=== PATIENT | female | born 1970 | race Caucasian/White ===

== ENCOUNTER → 2016-09-28 | Outpatient (CLI) | payer OTHER ==
--- NOTE | 2016-09-28 09:41 | NM ---
EXAMINATION TYPE: NM hepatobiliary w EF DATE OF EXAM: 09/28/2016 COMPARISON: NONE HISTORY: GERD TECHNIQUE: After the intravenous administration of 5.41 mCi Tc 99m Mebrofenin hepatobiliary scintigra phy is performed. Immediate images post injection. FINDINGS: There is satisfactory initial accumulation of tracer by the liver. The gallbladder is visualized wit hin 8 minutes. The small bowel activity is noted within 30 to minutes. At one hour 8 ounces of oral ensure plus is given to mimic CCK and gallbladder ejection fraction is calculated at 86 %, above nor mal. Therefore there is no scintigraphic evidence of cystic or common bile duct obstruction to sugge st acute cholecystitis or gallbladder dyskinesia. IMPRESSION: HYPOCONTRACTILITY OF THE GALLBLADDER.
== END | disposition home or self-care (01) ==
LOC: RADNMMAIN 07:01
PROVIDERS: ATTEND Surgery
DX: K82.8 Other specified diseases of gallbladder (principal)
CPT/HCPCS: 78226; A9537

== ENCOUNTER 2016-10-22 08:45 | Day surgery (SDC) | payer OTHER ==
[2016-10-19 14:27] VITALS: BMI 39.5
[~2016-10-22 08:45] MED LIST: DEXAMETHASONE SOD PHOSPHATE 10 MG/ML 1 ML VIAL IV ONE; HEPARIN SODIUM,PORCINE 5,000 UNIT/ML 1 ML VIAL SQ ONE; HYDROmorphone 1 MG/ML 1 ML SYRINGE IVP PRN; LACTATED RINGERS 1,000 ML IV SCH; MIDAZOLAM 2 MG/2 ML VIAL IV PRN; ONDANSETRON 4 MG/2 ML VIAL IVP ONE; SCOPOLAMINE 1.5MG/72HR PATCH TRANSDERM ONE; ceFAZolin 2 GM in SODIUM CHLORIDE 0.9% 100 ML IVPB ONE
[2016-10-22] MEDS ORDERED: LIDOCAINE 1% 20 ML VIAL (10MG/ML) FOR IV START INTRADERMA ONE (09:30)
--- NOTE | 2016-10-22 09:31 | P.GSHP ---
History of Present Illness H&P Date: 10/22/16 Chief Complaint: Right upper quadrant pain This is a 38-year-old female 6 with right upper quadrant pain. Her recent HIDA scan shows abnormal ejection fraction consistent with chronic cholecystitis. - Constitutional Constitutional: Reports as per HPI Past Medical History Past Medical History: Asthma, GERD/Reflux Additional Past Medical History / Comment(s): MIGRAINES, HERNIATED DISCS, DDD, BACK PAIN, HYPOGLYCEMIA-MONITORS CBG AND WATCHES DIET., FREQUENT DIARRHEA. History of Any Multi-Drug Resistant Organisms: None Reported Past Surgical History: Hysterectomy, Orthopedic Surgery Additional Past Surgical History / Comment(s): RIGHT HAND -PLATE AND SCREW, IRRITATING METAL REMOVED, EGD X2,LEFT KNEE-ARTHROSCOPIC, laporascopic Renetta procedure 10/14/2015 Past Anesthesia/Blood Transfusion Reactions: Motion Sickness, Postoperative Nausea & Vomiting (PONV) Past Psychological History: No Psychological Hx Reported Smoking Status: Former smoker Past Alcohol Use History: Rare Additional Past Alcohol Use History / Comment(s): STARTED SMOKING AT AGE 10, QUIT SMOKING IN 2005 SMOKED 1/2PPD Past Drug Use History: None Reported - Past Family History Mother Family Medical History: Cancer Additional Family Medical History / Comment(s): MOUTH AND THROAT CANCER Medications and Allergies Home Medications Medication Instructions Recorded Confirmed Type Acetaminophen-Codeine 300-30mg 1 tab PO Q4-6H PRN 10/19/16 10/22/16 History [Tylenol w/codeine #3] Ibuprofen [Motrin] 800 mg PO Q6HR PRN 10/19/16 10/22/16 History Ranitidine HCl [Zantac] 300 mg PO BID 10/19/16 10/22/16 History Sucralfate [Carafate] 1 gm PO QID PRN 10/19/16 10/22/16 History Xopenex Inhaler 45 Mcg 2 puff INHALATION QID PRN 10/19/16 10/22/16 History Allergies Allergy/AdvReac Type Severity Reaction Status Date / Time Penicillins Allergy Severe Rash/Hives Verified 10/22/16 09:25 venom-honey bee Allergy Severe Rash/Hives, Verified 10/22/16 09:25 [bee venom (honey bee)] SWELLING venom-wasp [wasp venom] Allergy Severe Rash/Hives, Verified 10/22/16 09:25 SWELLING perampanel [From Fycompa] Allergy DIZZINESS Verified 10/22/16 09:26 albuterol AdvReac Severe Rapid Verified 10/22/16 09:25 Heart Rate hydrocodone AdvReac Severe Vomiting Verified 10/22/16 09:25 Surgical - Exam - General well developed, no distress - Eyes PERRL - ENT normal pinna - Neck no masses - Respiratory normal expansion - Cardiovascular Rhythm: regular - Abdomen Abdomen: soft, non tender Assessment and Plan Plan: Right upper quadrant pain Chronic cholecystitis We will perform laparoscopic cholecystectomy
[2016-10-22 09:34] VITALS: TEMP 97.8
[2016-10-22 09:35] LABS: Glucose,Whole Blood 86 mg/dL (75-99)
[2016-10-22] MEDS ORDERED: KETOROLAC 30 MG/ML 1 ML VIAL ONE (10:59)
[2016-10-22] MEDS ORDERED: SUCCINYLCHOLINE CHLORIDE 100 MG/5 ML SYR IV ONE (10:59)
[2016-10-22] MEDS ORDERED: GLYCOPYRROLATE 0.2 MG/ML 2 ML VIAL ONE (10:59)
[2016-10-22] MEDS ORDERED: PROPOFOL 10 MG/ML 20 ML VIAL IV ONE (10:59)
[2016-10-22] MEDS ORDERED: NEOSTIGMINE 1 MG/ML 10 ML VIAL ONE (10:59)
[2016-10-22] MEDS ORDERED: ROCURONIUM BROMIDE 10 MG/ML 10 ML VIAL IV ONE (10:59)
[2016-10-22] MEDS ORDERED: fentaNYL (PF) 50 MCG/ML 2 ML AMP ONE (10:59)
[2016-10-22] MEDS ORDERED: LIDOCAINE 1% INJ 10MG/ML (20 ML MDV) ONE (10:59)
[2016-10-22] MEDS ORDERED: MIDAZOLAM 2 MG/2 ML VIAL ONE (10:59)
[2016-10-22] MEDS ORDERED: BUPIVACAIN-EPI 0.5%-1:200,000 30 ML VIAL SQ ONE (11:19)
--- NOTE | 2016-10-22 11:37 | P.OP ---
Date of Procedure: 10/22/16 Preoperative Diagnosis: Cholecystitis Postoperative Diagnosis: Cholecystitis Procedure(s) Performed: Laparoscopic cholecystectomy Implants: Anesthesia: NATTY Surgeon: Estrada Hunt Estimated Blood Loss (ml): 5 Pathology: other (All bladder) Condition: stable Disposition: PACU Indications for Procedure: Operative Findings: Description of Procedure: The patient was placed on the operating table. The patient received a general endotracheal tube anesthesia. The patients abdomen was prepped and draped in the usual sterile fashion. Through an infraumbilical stab incision, the fascia of the anterior abdominal wall was grasped with a pair of Kochers and then the Veress needle was placed in the peritoneal cavity. Position of the Veress needle was confirmed with positive drop test. The abdomen was then insufflated. After adequate insufflation, the 10 mm trocar was placed in the peritoneal cavity. Following this the laparoscope was placed in the peritoneal cavity. The patient was placed in the head-up, right side up position and then a 5 mm trocar was placed in the right lateral and right subcostal position under direct visualization. A 8 mm trocar was placed in the epigastric position. The gallbladder was grasped in the fundus and infundibulum. Traction on the gallbladder was placed in the lateral and the cephalad positions. The triangle of [place]ot was visualized.. The cystic duct was bluntly dissected until the union of the cystic duct and common bile duct was seen. The cystic duct was then divided and sealed with the Harmonic scissors. A PDS Endoloop was then placed throughout the cystic duct stump. The cystic artery divided and sealed with the Harmonic scissors. The gallbladder was then removed from the liver bed using Harmonic scissors. The gallbladder was then extracted through the epigastric port site. Operative field was checked for any bleeding spots and Harmonic scissors was used to coagulate the liver bed. The abdomen was irrigated. The trocars were removed. The skin was closed using interrupted 3-0 Vicryl suture. Dermabond dressing were applied. The patient tolerated the procedure well.
[2016-10-22] MEDS ORDERED: LACTATED RINGERS 1,000 ML IV ONE (11:38)
[2016-10-22 12:17] LABS: Glucose,Whole Blood 111 mg/dL (75-99)
[2016-10-22 13:43] VITALS: RESP 18
[2016-10-22 14:05] VITALS: BP 106/71; PULSE 49
[2016-10-22] MEDS ORDERED: Acetaminophen-Codeine 300-30mg TAB PO ONE ×2 (14:05→15:14)
== END 2016-10-22 15:44 | disposition home or self-care (01) ==
LOC: OR 08:45
PROVIDERS: ATTEND Surgery
DX: K81.1 Chronic cholecystitis (principal); J45.909 Unspecified asthma, uncomplicated; E16.2 Hypoglycemia, unspecified; Z87.891 Personal history of nicotine dependence; Z79.899 Other long term (current) drug therapy; Z88.5 Allergy status to narcotic agent; Z88.0 Allergy status to penicillin; Z88.8 Allergy status to other drugs, medicaments and biological substances; Z91.030 Bee allergy status; Z91.038 Other insect allergy status
CPT/HCPCS: 88304; 47562; J2250; J1644; J1100; J2710; J0690; J2405; J2001; J3010; J1885; J1170; J0330; J2704

== ENCOUNTER → 2017-06-09 | Outpatient (CLI) | payer OTHER ==
--- NOTE | 2017-06-09 12:18 | FL ---
ESOPHOGRAM. HISTORY: s/p Renetta fundoplication 2 years ago, cholecystectomy 1 year ago. c/o pain, burning at surg daron site, reflux. COMPARISON: 10/15/2015 1.0 min fluoro, 1 oz EZ Paque. 11 images submitted. Esophagram was performed per the air contrast technique. The patient swallowed thin liquid barium wi thout difficulty or delay. Esophageal peristalsis and motility appear to be within normal limits. There is no evidence for filling defect, mass or diverticulum. There is a small recurrent hiatal hernia identified. IMPRESSION: 1. Small recurrent hiatal hernia in a patient who is status post Fredrick fundoplication 10/15/2015.
== END | disposition home or self-care (01) ==
LOC: RADFLWHC 09:33
PROVIDERS: ATTEND Surgery
DX: K44.9 Diaphragmatic hernia without obstruction or gangrene (principal); K21.9 Gastro-esophageal reflux disease without esophagitis; Z98.890 Other specified postprocedural states
CPT/HCPCS: 74220

== ENCOUNTER 2017-06-24 08:10 | Day surgery (SDC) | payer OTHER ==
[2017-06-22 14:54] VITALS: BMI 38.9
[~2017-06-24 08:10] MED LIST changes: -DEXAMETHASONE SOD PHOSPHATE 10 MG/ML 1 ML VIAL IV ONE; -HEPARIN SODIUM,PORCINE 5,000 UNIT/ML 1 ML VIAL SQ ONE; -HYDROmorphone 1 MG/ML 1 ML SYRINGE IVP PRN; +LIDOCAINE 1% 20 ML VIAL (10MG/ML) FOR IV START INTRADERMA PRN; -MIDAZOLAM 2 MG/2 ML VIAL IV PRN; -ONDANSETRON 4 MG/2 ML VIAL IVP ONE; -SCOPOLAMINE 1.5MG/72HR PATCH TRANSDERM ONE; -ceFAZolin 2 GM in SODIUM CHLORIDE 0.9% 100 ML IVPB ONE
[2017-06-24 09:05] VITALS: RESP 16; TEMP 98.1
[2017-06-24] MEDS ORDERED: PROPOFOL 10 MG/ML 20 ML VIAL IV ONE (09:15)
[2017-06-24] MEDS ORDERED: GLYCOPYRROLATE 0.2 MG/ML 2 ML VIAL ONE (09:15)
[2017-06-24] MEDS ORDERED: LIDOCAINE 1% INJ 10MG/ML (20 ML MDV) ONE (09:15)
[2017-06-24 09:18] LABS: Glucose,Whole Blood 84 mg/dL (75-99)
--- NOTE | 2017-06-24 09:20 | P.GSHP ---
History of Present Illness H&P Date: 06/24/17 Chief Complaint: GERD, dysphagia This is a 47-year-old female referred from Dr. Fournier. Patient has complaints of GERD and intermittent dysphagia. She underwent previous hiatal hernia repair approximately 2 years ago. Her recent esophagram shows evidence of a small recurrent hiatal hernia. She presents today for EGD. Past Medical History Past Medical History: Asthma, GERD/Reflux, Hyperlipidemia Additional Past Medical History / Comment(s): MIGRAINES, HERNIATED DISCS, BACK PAIN, FREQUENT DIARRHEA. History of Any Multi-Drug Resistant Organisms: None Reported Past Surgical History: Cholecystectomy, Hysterectomy, Orthopedic Surgery Additional Past Surgical History / Comment(s): ,RIGHT HAND -PLATE AND SCREW, IRRITATING METAL REMOVED, EGD X2,LEFT KNEE-ARTHROSCOPIC, laporascopic Renetta procedure Past Anesthesia/Blood Transfusion Reactions: Motion Sickness, Postoperative Nausea & Vomiting (PONV) Smoking Status: Former smoker - Past Family History Mother Family Medical History: Cancer Additional Family Medical History / Comment(s): MOUTH AND THROAT CANCER Medications and Allergies Home Medications Medication Instructions Recorded Confirmed Type Ibuprofen [Motrin] 800 mg PO Q6HR PRN 10/19/16 06/24/17 History Ranitidine HCl [Zantac] 300 mg PO BID 10/19/16 06/24/17 History Sucralfate [Carafate] 1 gm PO QID PRN 10/19/16 06/24/17 History Xopenex Inhaler 45 Mcg 2 puff INHALATION QID PRN 10/19/16 06/24/17 History Acetaminophen-Codeine 300-30mg 1 - 2 tab PO Q6H PRN 06/22/17 06/24/17 History [Tylenol #3] Allergies Allergy/AdvReac Type Severity Reaction Status Date / Time Penicillins Allergy Severe Rash/Hives Verified 06/22/17 14:25 venom-honey bee Allergy Severe Rash/Hives, Verified 06/22/17 14:25 [bee venom (honey bee)] SWELLING venom-wasp [wasp venom] Allergy Severe Rash/Hives, Verified 06/22/17 14:25 SWELLING gabapentin [From Neurontin] Allergy UNSTEADY Verified 06/22/17 15:04 GAIT,DIZZY perampanel [From Fycompa] Allergy DIZZINESS Verified 06/22/17 14:25 albuterol AdvReac Severe Rapid Verified 06/22/17 14:25 Heart Rate hydrocodone AdvReac Severe Vomiting Verified 06/22/17 14:25 Surgical - Exam Vital Signs Temp Pulse Resp BP Pulse Ox 98.1 F 73 16 128/86 96 06/24/17 09:02 06/24/17 09:02 06/24/17 09:02 06/24/17 09:02 06/24/17 09:02 - General well developed, no distress - Eyes PERRL - ENT normal pinna - Neck no masses - Respiratory normal expansion - Cardiovascular Rhythm: regular - Abdomen Abdomen: soft, non tender Assessment and Plan Assessment: GERD, dysphagia Recurrent hiatal hernia We'll perform EGD.
--- NOTE | 2017-06-24 09:26 | P.OP ---
Date of Procedure: 06/24/17 Preoperative Diagnosis: GERD Dysphagia Postoperative Diagnosis: Recurrent hiatal hernia Esophagitis with ulceration Procedure(s) Performed: EGD Anesthesia: MAC Surgeon: Estrada Hunt Pathology: other (Esophagus) Condition: stable Disposition: PACU Description of Procedure: The patient's placed on the endoscopy table in the lateral position. She received IV sedation. The gastroscope placed oropharynx and passed in the esophagus and stomach. Scope was then placed through the pylorus. The first and second portion of the duodenum appeared normal. Scope was then brought back the antrum this appeared normal. The scope was then retroflexed and the patient is found have a hiatal hernia. The gastric fundal plication appeared to be displaced onto the stomach. The GE junction was at 38 cm. The distal esophagus appeared inflamed. This area is biopsied. The proximal esophagus. Normal. Scope was withdrawn for patient.
[2017-06-24 09:56] VITALS: BP 138/84; PULSE 73
== END 2017-06-24 10:09 | disposition home or self-care (01) ==
LOC: ORWHC2ENDO 08:10
PROVIDERS: ATTEND Surgery
DX: K21.0 Gastro-esophageal reflux disease with esophagitis (principal); B37.81 Candidal esophagitis; K22.10 Ulcer of esophagus without bleeding; K44.9 Diaphragmatic hernia without obstruction or gangrene; J45.909 Unspecified asthma, uncomplicated; E78.5 Hyperlipidemia, unspecified; G43.909 Migraine, unspecified, not intractable, without status migrainosus; Z79.899 Other long term (current) drug therapy; Z87.891 Personal history of nicotine dependence; Z88.0 Allergy status to penicillin; Z88.8 Allergy status to other drugs, medicaments and biological substances; Z91.030 Bee allergy status; Z91.038 Other insect allergy status
CPT/HCPCS: 43239; J2001; J2704; 88305; 88312

== ENCOUNTER 2017-07-22 06:21 | Inpatient (IN) | payer OTHER ==
[2017-07-13 14:17] VITALS: BMI 39.8
[~2017-07-22 06:21] MED LIST changes: +DEXAMETHASONE SOD PHOSPHATE 10 MG/ML 1 ML VIAL IV ONE; +HEPARIN SODIUM,PORCINE 5,000 UNIT/ML 1 ML VIAL SQ ONE; -LACTATED RINGERS 1,000 ML IV SCH; -LIDOCAINE 1% 20 ML VIAL (10MG/ML) FOR IV START INTRADERMA PRN; +MIDAZOLAM 2 MG/2 ML VIAL IV PRN; +ONDANSETRON 4 MG/2 ML VIAL IVP ONE; +SCOPOLAMINE 1.5MG/72HR PATCH TRANSDERM ONE; +ceFAZolin 2 GM in SODIUM CHLORIDE 0.9% 100 ML IVPB ONE; +ceFAZolin IN SWFI 2 GM/20 ML SYRINGE IVP ONE; +fentaNYL (PF) 50 MCG/ML 2 ML AMP IV PRN
[2017-07-22] MEDS ORDERED: LIDOCAINE 1% 20 ML VIAL (10MG/ML) FOR IV START INTRADERMA ONE (07:00)
[2017-07-22 07:09] LABS: Glucose,Whole Blood 87 mg/dL (75-99)
[2017-07-22] MEDS: LACTATED RINGERS 1,000 ML IV SCH (07:17)
[2017-07-22] MEDS ORDERED: BUPIVACAINE (PF) 0.25% 30 ML VIAL SQ ONE ×2 (07:24→09:28)
[2017-07-22] MEDS ORDERED: CLINDAMYCIN 600 MG in DEXTROSE 5% IN WATER 50 ML IVPB STA ×2 (07:39)
--- NOTE | 2017-07-22 07:44 | P.GSHP ---
History of Present Illness H&P Date: 07/22/17 Chief Complaint: GERD, dysphagia This a 47-year-old female who presents today for laparoscopic repair of recurrent hiatal hernia. Patient is developed a recurrent hiatal hernia. She' s been symptomatic with GERD and dysphagia.The patient has had long-standing problems with reflux esophagitis. The patient underwent recent EGD is found have evidence of esophagitis. Patient has been well informed on the procedure of laparoscopic hiatal hernia repair. The patient is aware the risk of the conversion to the open procedure, risk of injury to the stomach, liver and spleen. The patient is also a risk of recurrent GERD and dysphagia symptoms. The patient understands there is a postoperative diet of full liquids for 2 weeks after surgery. Past Medical History Past Medical History: Asthma, GERD/Reflux, Hyperlipidemia Additional Past Medical History / Comment(s): HYPOGLYCEMIA. MIGRAINES, HERNIATED DISCS, BACK PAIN, FREQUENT DIARRHEA. History of Any Multi-Drug Resistant Organisms: None Reported Past Surgical History: Cholecystectomy, Hysterectomy, Orthopedic Surgery Additional Past Surgical History / Comment(s): ,RIGHT HAND -PLATE AND SCREW, IRRITATING METAL REMOVED, EGD X2,LEFT KNEE-ARTHROSCOPIC, laparoscopic Renetta procedure , EGD Past Anesthesia/Blood Transfusion Reactions: Motion Sickness, Postoperative Nausea & Vomiting (PONV) Past Psychological History: No Psychological Hx Reported Smoking Status: Former smoker Past Alcohol Use History: Rare Additional Past Alcohol Use History / Comment(s): STARTED SMOKING AT AGE 10, QUIT SMOKING IN 2005 SMOKED 1/2PPD Past Drug Use History: None Reported - Past Family History Mother Family Medical History: Cancer Additional Family Medical History / Comment(s): MOUTH AND THROAT CANCER Medications and Allergies Home Medications Medication Instructions Recorded Confirmed Type Ibuprofen [Motrin] 800 mg PO Q6HR PRN 10/19/16 07/13/17 History Ranitidine HCl [Zantac] 300 mg PO BID 10/19/16 07/13/17 History Sucralfate [Carafate] 1 gm PO QID PRN 10/19/16 07/13/17 History Xopenex Inhaler 45 Mcg 2 puff INHALATION QID PRN 10/19/16 07/13/17 History Acetaminophen-Codeine 300-30mg 1 - 2 tab PO Q6H PRN 06/22/17 07/13/17 History [Tylenol #3] Omeprazole 20 mg PO DAILY 07/13/17 07/13/17 History Allergies Allergy/AdvReac Type Severity Reaction Status Date / Time Penicillins Allergy Severe Rash/Hives Verified 07/13/17 14:11 venom-honey bee Allergy Severe Rash/Hives, Verified 07/13/17 14:11 [bee venom (honey bee)] SWELLING venom-wasp [wasp venom] Allergy Severe Rash/Hives, Verified 07/13/17 14:11 SWELLING gabapentin [From Neurontin] Allergy UNSTEADY Verified 07/13/17 14:11 GAIT,DIZZY perampanel [From Fycompa] Allergy DIZZINESS Verified 07/13/17 14:11 albuterol AdvReac Severe Rapid Verified 07/13/17 14:11 Heart Rate hydrocodone AdvReac Severe Vomiting Verified 07/13/17 14:11 Surgical - Exam Vital Signs Temp Pulse Resp BP Pulse Ox 97.9 F 63 18 107/69 97 07/22/17 07:13 07/22/17 07:13 07/22/17 07:13 07/22/17 07:13 07/22/17 07:13 - General well developed, no distress - Eyes PERRL - Neck no masses - Respiratory normal expansion - Cardiovascular Rhythm: regular - Abdomen Abdomen: soft, non tender Assessment and Plan Assessment: Recurrent hiatal hernia. We'll perform laparoscopic repair.
[2017-07-22] MEDS ORDERED: MIDAZOLAM 2 MG/2 ML VIAL ONE (07:49)
[2017-07-22] MEDS ORDERED: fentaNYL (PF) 50 MCG/ML 2 ML AMP ONE (07:49)
[2017-07-22] MEDS ORDERED: PROPOFOL 10 MG/ML 20 ML VIAL IV ONE (07:49)
[2017-07-22] MEDS ORDERED: LIDOCAINE 1% INJ 10MG/ML (20 ML MDV) ONE (07:49)
[2017-07-22] MEDS ORDERED: KETOROLAC 30 MG/ML 1 ML VIAL ONE (07:49)
[2017-07-22] MEDS ORDERED: NEOSTIGMINE 1 MG/ML 10 ML VIAL ONE (07:49)
[2017-07-22] MEDS ORDERED: GLYCOPYRROLATE 0.2 MG/ML 2 ML VIAL ONE (07:49)
[2017-07-22] MEDS ORDERED: ROCURONIUM BROMIDE 10 MG/ML 10 ML VIAL IV ONE (07:49)
[2017-07-22] MEDS ORDERED: SUCCINYLCHOLINE CHLORIDE 100 MG/5 ML SYR IV ONE (07:49)
[2017-07-22] MEDS ORDERED: METHYLENE BLUE 10 MG/ML (10 ML VIAL) MISCELLANE ONE (09:22)
--- NOTE | 2017-07-22 09:39 | P.OP ---
Date of Procedure: 07/22/17 Preoperative Diagnosis: GERD Recurrent hiatal hernia Postoperative Diagnosis: GERD Recurrent hiatal hernia Procedure(s) Performed: Laparoscopic repair of hiatal hernia with mesh, 180 fundal plication Anesthesia: NATTY Surgeon: Estrada Hunt Estimated Blood Loss (ml): 5 Pathology: none sent Condition: stable Disposition: PACU Description of Procedure: The patient was placed on the operating table in the supine position. She received general anesthesia. She was then placed in dorsal lithotomy position. Her abdomen was prepped and draped in the usual sterile fashion. The skin incision sites were anesthetized with 1% local Xylocaine. The skin was incised in the left periumbilical area with an 11 scalpel. Using a 5 mm blade was trocar under direct visitation the peritoneal cavity was entered. And then insufflated. After adequate insufflation the laparoscope was placed back into the peritoneal cavity. Next a 5 mm trocar was placed in the right epigastric and then the right lateral position. Another 5 mm trochars placed in the left lateral position. Another 5 mm trocar placed in the left epigastric position. And the original left periumbilical trocar was exchanged for a 10 mm trocar. The left lateral lobe liver was retracted. The patient had a recurrent hiatal hernia. Using the Harmonic scissors the crural defect was dissected in the Harmonic scissors were used to dissect the hiatal hernia sac. The fundus of the stomach was completely mobilized by using the Harmonic scissors to divide short gastric vessels. The stomach was reduced into the peritoneal cavity. The crura was dissected with the Harmonic scissors. And then the crural repair was performed using 2-0 Ethibond suture. The [place] bio A mesh was then placed over top of the repair and secured with 2-0 Ethibond suture. Next a 58-[place] bougie dilator was placed the patient's oral pharynx and into the esophagus into the stomach by the ENGINE LATHE SET UP OPERATOR. The fundoplication was then performed using 2-0 Ethibond suture. A 180 fundoplication was performed. At this point the dilator was withdrawn. The stomach and esophagus were inspected there is known to any injury to the stomach or esophagus. The abdomen was irrigated there is no bleeding seen. The trochars are withdrawn. Skin was closed interrupted 3-0 Monocryl suture. Dermabond was applied. Patient tolerated procedure well and was sent to recovery in stable condition.
[2017-07-22 09:52] VITALS: RESP 16
[2017-07-22] MEDS ORDERED: LACTATED RINGERS 1,000 ML IV ONE (09:58)
[2017-07-22] MEDS ORDERED: ONDANSETRON 4 MG/2 ML VIAL IVP ONE (11:10)
[2017-07-22] MEDS: D5-0.45% NACL WITH KCL 20MEQ/L 1,000 ML IV SCH ×2 (12:15→19:54)
[2017-07-22] MEDS ORDERED: ONDANSETRON 4 MG/2 ML VIAL IVP PRN (12:39)
[2017-07-22] MEDS: PANTOPRAZOLE 40 MG/10 ML VIAL IVP SCH ×2 (13:13→19:54)
--- NOTE | 2017-07-22 14:13 | FL ---
EXAMINATION TYPE: FL esophagus cervic/pharynx DATE OF EXAM: 07/22/2017 LIMITED UGI-ESOPHAGRAM: CLINICAL HISTORY: History of recurrent hiatal hernia per patient status post Fredrick fundoplication s urgery earlier today TECHNIQUE: Limited esophagram is performed utilizing 25 oz of Omnipaque 350. A total of 2 minutes 41 seconds of fluoroscopic time was utilized during procedure. 32 images are saved to PACS. Comparison: Barium swallow study June 09, 2017. FINDINGS: The patient swallowed contrast without difficulty or delay. Esophageal peristalsis and mo tility are within normal limits. There is an initial delayed flow of contrast along the diaphragmatic hiatus into the stomach, there is no evidence of contrast extravasation to suggest leak. Patient is nauseous before and during procedure without increased nausea. No persistent hiatal hernia is seen ju st above diaphragmatic hiatus. After drinking water there is improved flow of contrast through hiatus into stomach. Cholecystectomy clips are noted. IMPRESSION: No evidence of leak or significant obstruction status post reoperation on recurrent hiata l hernia causing repeat Fredrick fundoplication surgery earlier today.
[2017-07-22] MEDS: MORPHINE SULFATE/PF 10MG/10ML VL IVP PRN ×2 (16:59→22:11)
[2017-07-22] MEDS ORDERED: NON-FORMULARY DRUG (Levalbuterol Tartrate [Xopenex Hfa Inhaler] 2 PUFF) INHALATION PRN (18:59)
--- NOTE | 2017-07-22 20:40 | CONS ---
CONSULTATION REASON FOR CONSULTATION: Advice regarding asthma and multiple medical issues requested by Dr. Hunt. HISTORY OF PRESENT ILLNESS: This 47-year-old woman with past medical history of asthma, GERD, hyperlipidemia , cholecystectomy being followed by Dr. Barnes in the outpatient setting underwent laparoscopic repair of the hiatal hernia with mesh with fundoplication by Dr. Hunt. The patient is being closely monitored. There is no history of any chest pain, no palpitations, no headache, loss of conscious or seizures at this time. PAST MEDICAL HISTORY: History of asthma, GERD, hyperlipidemia, hypertension, migraines, cholecystectomy. MEDICATIONS: Prior to admission include: 1. Carafate 1 g p.o. q.i.d. p.r.n. 2. Zantac 300 mg p.o. b.i.d. 3. Omeprazole 20 mg p.o. daily. 4. Motrin 800 mg q.6h p.r.n. 5. Tylenol #3 one tablets q.6h p.r.n. 6. Xopenex HFA 2 puffs q.i.d. p.r.n. 7. [place] 7.5 q.4h. 8. Colace 100 mg p.o. b.i.d. ALLERGIES: PENICILLIN, HONEY BEE, WASP, NEURONTIN, ALBUTEROL, HYDROCODONE. FAMILY HISTORY: History of mouth and throat cancer. SOCIAL HISTORY: Previous history of smoking. Occasional alcohol intake. REVIEW OF SYSTEMS: ENT: No diminished vision. No diminished hearing. CARDIOVASCULAR: No angina or palpitations. Respiratory: No cough or hemoptysis. GI as mentioned earlier. no dysuria. Nervous system: No numbness, weakness. Allergy/Immunology: No asthma or hayfever. Musculoskeletal as mentioned earlier. HEMATOLOGY/ONCOLOGY: No history of anemia. Endocrine: No history of diabetes or hypothyroidism. CONSTITUTIONAL: As mentioned earlier. Dermatology: Negative. Rheumatology: Negative. Psychiatric: As mentioned earlier. PHYSICAL EXAMINATION: Patient is alert, oriented times three. Pulse 70, blood pressure 126/70, respiration 16, temperature 97.4, pulse ox 94% on room air. HEENT: Conjunctivae normal. Oral mucosa moist. Neck is no jugular venous distention. No carotid bruit. No lymph node enlargement. Cardiovascular: S1, S2 muffled. No S3, no S4. Respiratory: Breath sounds diminished in the bases. No rhonchi. No crackles. ABDOMEN: Soft. Status post surgery. Bowel sounds present. Legs: No edema and no swelling. NERVOUS SYSTEM: Higher functions as mentioned earlier. Moves all four limbs. No focal deficits. Lymphatics: No lymph nodes palpable in the neck, axillae or groin. SKIN: No ulcer, rashes or bleeding. LAB STUDIES: Glucose 87. Other labs: Hematology recent done, CBC within normal limits. ASSESSMENT: 1. Status post laparoscopic hiatal hernia, repair of hiatal hernia as well as fundoplication for gastroesophageal reflux disease. 2. Asthma. 3. Hyperlipidemia. 4. History of hypoglycemia. 5. History of migraines. 6. History of degenerative joint disease. 7. History of cholecystectomy. 8. Remote history of nicotine dependence. RECOMMENDATIONS AND DISCUSSION: This 47-year-old woman who presented after surgery had multiple medical issues. I would recommend to resume the home medication. The patient is on DVT prophylaxis. Incentive spirometry. Proton pump inhibitors. We will follow the patient closely with you. Xopenex HFA inhaler may be used initially. Thank you for letting us participate in the care of this patient. MMODL / IJN: [id number] / MTDPatricia
[2017-07-22 21:21] VITALS: PULSE 61
[2017-07-23] MEDS: LACTATED RINGERS 1,000 ML IV SCH (03:12)
[2017-07-23] MEDS: D5-0.45% NACL WITH KCL 20MEQ/L 1,000 ML IV SCH (05:08)
[2017-07-23] MEDS: MORPHINE SULFATE/PF 10MG/10ML VL IVP PRN ×2 (05:09→09:26)
[2017-07-23 07:15] LABS: Basophils % (A) 0 %; Eosinophils % (A) 0 %; HCT 37.3 % (34.0-46.0); HGB 11.9 gm/dL (11.4-16.0); Lymphocytes # (A) 1.9 k/uL (1.0-4.8); Lymphocytes % (A) 26 %; MCHC 31.9 g/dL (31.0-37.0); MCV 84.5 fL (80.0-100.0); Mean Platelet Volume 7.1; Monocytes # (A) 0.4 k/uL (0-1.0); Monocytes % (A) 5 %; Neutrophils % (A) 68 %; Platelet Count 217 k/uL (150-450); RBC 4.41 m/uL (3.80-5.40); RDW 14.4 % (11.5-15.5); WBC 7.4 k/uL (3.8-10.6)
[2017-07-23 07:25] VITALS: BP 92/63; TEMP 98.6
[2017-07-23 07:28] LABS: Albumin 3.2 g/dL (3.5-5.0); Calcium 8.7 mg/dL (8.4-10.2); Potassium 4.4 mmol/L (3.5-5.1); Total Bilirubin 0.4 mg/dL (0.2-1.3); Total Protein 5.6 g/dL (6.3-8.2)
[2017-07-23] MEDS: PANTOPRAZOLE 40 MG/10 ML VIAL IVP SCH (08:24)
[2017-07-23] MEDS ORDERED: ENOXAPARIN 40 MG/0.4 ML SYRINGE SQ SCH (09:00)
[2017-07-23] MEDS ORDERED: HYDROcodone/APAP 7.5-325MG 1 EACH TAB PO ONE (14:02)
--- NOTE | 2017-07-23 14:12 | P.PN ---
Progress Note - Text Progress Note Date: 07/23/17 Patient seen and evaluated. Discharge instructions reviewed. May be discharged home. Patient prefers tylenol and ibuprofen.
[2017-07-23] MEDS ORDERED: ACETAMINOPHEN TAB 500 MG TAB PO STA (14:16)
--- NOTE | 2017-07-23 14:23 | PN ---
PROGRESS NOTE DATE OF SERVICE: 07/23/2017 INTERVAL HISTORY: This 47-year-old woman was admitted laparoscopic hiatal hernia repair, is improving significantly. No chest pain. No palpitations. No fever. No cough. EXAM: Alert and oriented times three. Pulse 61, blood pressure 92/63, respiration 16, temperature 98.2, pulse ox 98% on room air. HEENT: Conjunctivae normal. NECK: No jugular venous distention. Cardiovascular: S1, S2 muffled. Respiration: Breath sounds diminished in the bases. No rhonchi. No crackles. Abdomen is soft. Status post surgery. Legs are no edema. No swelling. Central nervous system: No focal deficits. LABORATORY DATA: CBC and CMP noted. ASSESSMENT: 1. Status post laparoscopic hiatal hernia repair as well as fundoplication for gastroesophageal reflux disease. 2. Asthma. 3. Hyperlipidemia. 4. History of hypoglycemia. 5. History of migraine. 6. History of degenerative joint disease. 7. History of cholecystectomy. 8. Remote history of nicotine dependence. RECOMMENDATIONS AND DISCUSSION: Recommend to continue current medications, management and symptomatic treatment. Recommend to resume the home medications including bronchodilators and incentive spirometry. Closely follow with primary physician. The rest of the recommendations will be per surgery. Further recommendations to follow. MMODL / IJN: [id number] /
--- NOTE | 2017-07-23 19:00 | P.DS ---
Providers Date of admission: 07/22/17 06:21 Expected date of discharge: 07/23/17 Attending physician: Estrada Hunt Consults: 07/22/17 09:34 Consult Physician Routine Consulting Provider: Harriet Porter Consult Reason/Comments: Medical management Do you want consulting provider notified?: Yes Primary care physician: Flavia Barnes - Discharge Diagnosis(es) (1) Hiatal hernia Status: Acute Hospital Course: The patient is a 47-year-old female admitted with hiatal hernia. She underwent hiatal hernia repair by Dr. Hunt. No reports of nausea or vomiting. At discharge, she was tolerating diet. Pertinent Studies: Esophagram negative for leak. Procedures: Laparoscopic hiatal hernia repair Patient Condition at Discharge: Stable Plan - Discharge Summary Discharge Rx Participant: Yes New Discharge Prescriptions: New Docusate [Colace] 100 mg PO BID #20 capsule HYDROcodone/APAP 7.5-325MG [[place] 7.5] 1 each PO Q4H PRN #30 tab PRN Reason: Pain No Action Sucralfate [Carafate] 1 gm PO QID PRN PRN Reason: Heartburn Ranitidine HCl [Zantac] 300 mg PO BID Ibuprofen [Motrin] 800 mg PO Q6HR PRN PRN Reason: Pain Acetaminophen-Codeine 300-30mg [Tylenol #3] 1 - 2 tab PO Q6H PRN PRN Reason: Pain Omeprazole 20 mg PO DAILY Levalbuterol Tartrate [Xopenex Hfa Inhaler] 2 puff INHALATION RT-QID PRN PRN Reason: Shortness Of Breath Discharge Medication List Ibuprofen [Motrin] 800 mg PO Q6HR PRN 10/19/16 [History] Ranitidine HCl [Zantac] 300 mg PO BID 10/19/16 [History] Sucralfate [Carafate] 1 gm PO QID PRN 10/19/16 [History] Acetaminophen-Codeine 300-30mg [Tylenol #3] 1 - 2 tab PO Q6H PRN 06/22/17 [ History] Omeprazole 20 mg PO DAILY 07/13/17 [History] Docusate [Colace] 100 mg PO BID #20 capsule 07/22/17 [Rx] HYDROcodone/APAP 7.5-325MG [[place] 7.5] 1 each PO Q4H PRN #30 tab 07/22/17 [Rx] Levalbuterol Tartrate [Xopenex Hfa Inhaler] 2 puff INHALATION RT-QID PRN [History] Follow up Appointment(s)/Referral(s): Estrada Hunt MD [STAFF PHYSICIAN] - 08/04/17 2:10 pm Patient Instructions/Handouts: *Surgery [facility] - (Anesthesia) Discharge Instructions Outpatient Surgery, Hiatal Hernia (DC) Activity/Diet/Wound Care/Special Instructions: May shower. Do not scrub incision. No heavy lifting, pushing, or pulling greater than 5-10 pounds. Monitor for signs of infection such as redness, swelling, fever, and drainage. Discharge Disposition: HOME SELF-CARE
== END 2017-07-23 14:50 | disposition home or self-care (01) | DRG 328 ==
LOC: 2ORMAIN 06:21 → 3SUR 11:27
PROVIDERS: ADMIT Surgery; ATTEND Surgery
PROC: 0BUT4JZ Supplement Diaphragm with Synthetic Substitute, Percutaneous Endoscopic Approach (ICD-10-PCS; 2017-07-22)
PROC: 0DV44ZZ Restriction of Esophagogastric Junction, Percutaneous Endoscopic Approach (ICD-10-PCS; principal; 2017-07-22 08:00)
DX: K44.9 Diaphragmatic hernia without obstruction or gangrene (principal); R13.10 Dysphagia, unspecified; K21.0 Gastro-esophageal reflux disease with esophagitis; E78.5 Hyperlipidemia, unspecified; J45.909 Unspecified asthma, uncomplicated; I10 Essential (primary) hypertension; M19.91 Primary osteoarthritis, unspecified site; M54.9 Dorsalgia, unspecified; R19.7 Diarrhea, unspecified; G43.909 Migraine, unspecified, not intractable, without status migrainosus; Z87.891 Personal history of nicotine dependence; Z79.899 Other long term (current) drug therapy; Z90.49 Acquired absence of other specified parts of digestive tract; Z90.710 Acquired absence of both cervix and uterus; Z88.5 Allergy status to narcotic agent; Z88.0 Allergy status to penicillin; Z88.8 Allergy status to other drugs, medicaments and biological substances; Z91.030 Bee allergy status; Z80.0 Family history of malignant neoplasm of digestive organs
CPT/HCPCS: 74210; 80053; 85025

== ENCOUNTER → 2018-03-15 | Outpatient (CLI) | payer OTHER ==
--- NOTE | 2018-03-15 15:03 | FL ---
EXAMINATION: Single contrast Cervical and Thoracic Esophagram DATE OF EXAM: 03/15/2018 CLINICAL INDICATION: 48 year-old female with reflux, heartburn, and pain. Patient with Renetta fundopl ication 3 years ago and revision surgery in June 2017. COMPARISON: 07/22/2017 Total Fluoroscopy Time: 2.01 minutes. Total images: 17. FINDINGS: The patient said that she cannot tolerate sodas. Therefore, only thin barium was utilized. Even utili zing thin barium, the patient was only outflow able to tolerate 1 ounce. This creates very limited as sessment. Overall normal course and caliber of the thoracic esophagus. No obvious recurrent hiatal he rnia seen. Most of the contrast passes into the stomach. Approximately half to a quarter remains in t he lower esophagus and there are tertiary peristaltic waves resulting in to-and-fro flow of contrast within the lower esophagus. IMPRESSION: Even utilizing thin barium, the patient could only tolerate 1 ounce of oral contrast. This secondaril y limits the assessment. No convincing findings of recurrent hiatal hernia. However, some of the cont rast remains in the lower esophagus and there are ensuing tertiary peristaltic waves resulting in tammy ts of intraesophageal reflux. Narrowing/stenosis at the GE junction is difficult to exclude. Again, t he minimal amount of ingested contrast limits the evaluation.
== END ==
LOC: RADFLWHC 08:46
PROVIDERS: ATTEND Surgery
DX: K21.9 Gastro-esophageal reflux disease without esophagitis (principal)
CPT/HCPCS: 74220

== ENCOUNTER 2018-03-27 07:43 | Day surgery (SDC) | payer OTHER ==
[2018-03-23 14:43] VITALS: BMI 41.3
[~2018-03-27 07:43] MED LIST changes: -DEXAMETHASONE SOD PHOSPHATE 10 MG/ML 1 ML VIAL IV ONE; -HEPARIN SODIUM,PORCINE 5,000 UNIT/ML 1 ML VIAL SQ ONE; +LACTATED RINGERS 1,000 ML IV SCH; +LIDOCAINE 1% 20 ML VIAL (10MG/ML) FOR IV START INTRADERMA PRN; -MIDAZOLAM 2 MG/2 ML VIAL IV PRN; -ONDANSETRON 4 MG/2 ML VIAL IVP ONE; -SCOPOLAMINE 1.5MG/72HR PATCH TRANSDERM ONE; -ceFAZolin 2 GM in SODIUM CHLORIDE 0.9% 100 ML IVPB ONE; -ceFAZolin IN SWFI 2 GM/20 ML SYRINGE IVP ONE; -fentaNYL (PF) 50 MCG/ML 2 ML AMP IV PRN
[2018-03-27 08:18] VITALS: TEMP 98.3
[2018-03-27] MEDS ORDERED: LIDOCAINE 1% 20 ML VIAL (10MG/ML) FOR IV START SQ ONE (08:19)
[2018-03-27 08:22] LABS: Glucose,Whole Blood 88 mg/dL (75-99)
[2018-03-27] MEDS ORDERED: PROPOFOL 10 MG/ML 20 ML VIAL IV ONE (08:52)
[2018-03-27] MEDS ORDERED: LIDOCAINE 1% INJ 10MG/ML (20 ML MDV) ONE (08:52)
--- NOTE | 2018-03-27 09:03 | P.GSHP ---
History of Present Illness H&P Date: 03/27/18 Chief Complaint: Dysphagia This a 48-year-old female Safer EGD. She's Had Complaints of Dysphagia. Past Medical History Past Medical History: Asthma, GERD/Reflux, Hyperlipidemia Additional Past Medical History / Comment(s): HYPOGLYCEMIA. MIGRAINES, HERNIATED DISCS, BACK PAIN, FREQUENT DIARRHEA. History of Any Multi-Drug Resistant Organisms: None Reported Past Surgical History: Cholecystectomy, Hernia Repair, Hysterectomy, Orthopedic Surgery Additional Past Surgical History / Comment(s): ,RIGHT HAND -PLATE AND SCREW, IRRITATING METAL REMOVED, EGD X2,LEFT KNEE-ARTHROSCOPIC, laparoscopic Renetta procedure , EGD, Past Anesthesia/Blood Transfusion Reactions: Motion Sickness, Postoperative Nausea & Vomiting (PONV) Smoking Status: Former smoker - Past Family History Mother Family Medical History: Cancer Additional Family Medical History / Comment(s): MOUTH AND THROAT CANCER Medications and Allergies Home Medications Medication Instructions Recorded Confirmed Type Ibuprofen [Motrin] 800 mg PO Q6HR PRN 10/19/16 03/27/18 History Ranitidine HCl [Zantac] 300 mg PO BID 10/19/16 03/27/18 History Levalbuterol Tartrate [Xopenex Hfa 2 puff INHALATION RT-QID PRN 07/22/17 History Inhaler] Allergies Allergy/AdvReac Type Severity Reaction Status Date / Time Penicillins Allergy Severe Rash/Hives Verified 03/27/18 07:53 venom-honey bee Allergy Severe Rash/Hives, Verified 03/27/18 07:53 [bee venom (honey bee)] SWELLING venom-wasp [wasp venom] Allergy Severe Rash/Hives, Verified 03/27/18 07:53 SWELLING gabapentin [From Neurontin] Allergy UNSTEADY Verified 03/27/18 07:53 GAIT,DIZZY perampanel [From Fycompa] Allergy DIZZINESS Verified 03/27/18 07:53 albuterol AdvReac Severe Rapid Verified 03/27/18 07:53 Heart Rate hydrocodone AdvReac Severe Vomiting Verified 03/27/18 07:53 Surgical - Exam Vital Signs Temp Pulse Resp BP Pulse Ox 98.3 F 71 16 134/83 98 03/27/18 08:03 03/27/18 08:03 03/27/18 08:03 03/27/18 08:03/27/18 08:03 - General well developed, no distress - Eyes PERRL - ENT normal pinna - Neck no masses - Respiratory normal expansion - Cardiovascular Rhythm: regular - Abdomen Abdomen: soft, non tender Assessment and Plan Assessment: Dysphagia. We'll perform EGD.
--- NOTE | 2018-03-27 09:08 | P.OP ---
Date of Procedure: 03/27/18 Preoperative Diagnosis: Dysphagia Postoperative Diagnosis: Antral gastritis No evidence of hiatal hernia. hernia Esophagitis No evidence of GE junction stricture Procedure(s) Performed: EGD Anesthesia: MAC Surgeon: Estrada Hunt Pathology: other (Antrum, esophagus) Condition: stable Disposition: PACU Description of Procedure: The patient's placed on the endoscopy table in the lateral position. She received IV sedation. The gastroscope placed oropharynx passed in the esophagus into the stomach. Scope was then placed through the pylorus. First and second portion of the duodenum appeared normal. Scope was then brought back the antrum and this appeared mildly inflamed. A biopsies performed. The scope was unretroflexed and remainder of the stomach appeared normal. There was no significant hiatal hernia. The GE junction was at 40 cm. The distal esophagus appeared inflamed a biopsies performed. The proximal esophagus appeared normal. There is no evidence of any GE junction stricture. Scope was withdrawn for patient.
[2018-03-27 09:29] VITALS: BP 143/86; PULSE 68; RESP 18
== END 2018-03-27 09:51 | disposition home or self-care (01) ==
LOC: ORWHC2ENDO 07:43
PROVIDERS: ATTEND Surgery
DX: K29.50 Unspecified chronic gastritis without bleeding (principal); K21.0 Gastro-esophageal reflux disease with esophagitis; E78.5 Hyperlipidemia, unspecified; J45.909 Unspecified asthma, uncomplicated; G43.909 Migraine, unspecified, not intractable, without status migrainosus; E16.2 Hypoglycemia, unspecified; R19.7 Diarrhea, unspecified; Z87.891 Personal history of nicotine dependence; Z79.899 Other long term (current) drug therapy; Z88.5 Allergy status to narcotic agent; Z88.0 Allergy status to penicillin; Z88.8 Allergy status to other drugs, medicaments and biological substances; Z91.030 Bee allergy status; Z91.038 Other insect allergy status
CPT/HCPCS: 88305; 43239; J2001; J2704